=== PATIENT | male | born 1975 | race Caucasian/White ===

== ENCOUNTER 2020-08-20 23:53 | Day surgery (SDC) | payer SELFPAY ==
[~2020-08-20] VITALS: Ht 182.8 cm; Wt 149.0 kg
[2020-08-21] VITALS (13 sets, daily range): BP systolic 102–146; BP diastolic 66–85
[2020-08-21] MEDS ORDERED: fentaNYL INJECTION 100 MCG/2 ML AMP IVP STA ×2 (00:09→02:25)
[2020-08-21 00:27] LABS: BASOPHILS % (AUTO) 0 % (0-10); EOSINOPHILS % (AUTO) 0 % (0-10); HEMATOCRIT 40 % (40-54); HEMOGLOBIN 13.8 g/dL (13.3-17.7); LYMPHOCYTES # (AUTO) 0.9 10^3/uL (1.0-4.0); LYMPHOCYTES % (AUTO) 7 % (12-44); MEAN CORPUSCULAR HEMOGLOBIN 29 pg (25-34); MEAN CORPUSCULAR HGB CONC 34 g/dL (32-36); MEAN CORPUSCULAR VOLUME 83 fL (80-99); MEAN PLATELET VOLUME 10.9 fL (9.0-12.2); MONOCYTES # (AUTO) 0.5 10^3/uL (0.0-1.0); MONOCYTES % (AUTO) 4 % (0-12); NEUTROPHILS # (AUTO) 11.6 10^3/uL (1.8-7.8); NEUTROPHILS % (AUTO) 88 % (42-75); PLATELET COUNT 253 10^3/uL (130-400); WHITE BLOOD COUNT 13.1 10^3/uL (4.3-11.0)
[2020-08-21 00:31] LABS: ALBUMIN 4.1 GM/DL (3.2-4.5); CHLORIDE 105 MMOL/L (98-107); POTASSIUM 3.9 MMOL/L (3.6-5.0); SODIUM 140 MMOL/L (135-145)
[2020-08-21 00:32] LABS: CALCIUM 8.6 MG/DL (8.5-10.1)
[2020-08-21 00:33] LABS: GLUCOSE 119 MG/DL (70-105); TOTAL PROTEIN 7.3 GM/DL (6.4-8.2)
[2020-08-21 00:34] LABS: CARBON DIOXIDE 22 MMOL/L (21-32)
[2020-08-21 00:35] LABS: BILIRUBIN,TOTAL 0.7 MG/DL (0.1-1.0)
[2020-08-21 00:37] LABS: ALKALINE PHOSPHATASE 58 U/L (40-136); CREATININE SERUM 0.79 MG/DL (0.60-1.30); GFR ESTIMATED > 60
[2020-08-21 00:38] LABS: BUN/CREATININE RATIO 18
[2020-08-21 00:40] LABS: ALANINE AMINOTRANSFERASE 44 U/L (0-55)
--- NOTE | 2020-08-21 00:43 | ED Abdominal Pain ---
General Chief Complaint: Abdominal/GI Problems Stated Complaint: ABD PAIN Nursing Triage Note: Patient comes in via EMS c/o R LQ pain since noon with nausea/vomiting. Sepsis Screen: No Definite Risk Source of Information: Patient Exam Limitations: No Limitations History of Present Illness Date Seen by Provider: Aug 21, 2020 Time Seen by Provider: 00:02 Initial Comments Here with complaint of right lower quadrant pain since about noon today that has worsened. It is associated with nausea and chills. Denies diarrhea. Last ate about 1 PM. Has not had pain like this before. Does admit to methamphetamine abuse with last use 2 days ago. Previously 1 month prior to that. Still has his appendix. Timing/Duration: 12 Hours, Getting Worse Severity/Quality: Moderate Location: RLQ Radiation: No Radiation Activities at Onset: None Modifying Factors: Worsens With Movement; Improves With Resting Associated Symptoms: No Back Pain, No Chest Pain, No Fever/Chills, No Shortness of Air, No Weakness Allergies and Home Medications Allergies Coded Allergies: No Known Drug Allergies (Unverified , 08/21/20) Patient Home Medication List Home Medication List Reviewed: Yes Review of Systems Review of Systems Constitutional: see HPI, chills; No fever EENTM: No Symptoms Reported; No Nose Congestion, No Throat Pain Respiratory: Denies Cough, Denies Shortness of Air Cardiovascular: Denies Chest Pain, Denies Edema Gastrointestinal: See HPI, Abdominal Pain; Denies Diarrhea Genitourinary: No Symptoms Reported Musculoskeletal: no symptoms reported Skin: no symptoms reported All Other Systems Reviewed Negative Unless Noted: Yes Past Pbjjltr-Aaeccc-Svdbel Hx Past Med/Social Hx: Reviewed Nursing Past Med/Soc Hx Patient Social History Alcohol Use: Occasionally Uses Drug of Choice: Methamphetamine Smoking Status: Current Everyday Smoker Recent Infectious Disease Expo: No Past Medical History Surgeries: No Respiratory: No Cardiac: No Neurological: No Gastrointestinal: No Musculoskeletal: No Endocrine: No Family Medical History Reviewed Nursing Family Hx No Pertinent Family Hx Physical Exam Vital Signs Vital Signs - First Documented 08/20/20 23:55 Temp 36.3 Pulse 94 Resp 18 B/P (MAP) 166/96 (119) Pulse Ox 95 O2 Delivery Room Air Capillary Refill : Less Than 3 Seconds Height/Weight/BMI Height: '" Weight: lbs. oz. kg; 37.00 BMI Method: General Appearance: WD/WN, no apparent distress HEENT: PERRL/EOMI, pharynx normal Neck: full range of motion, supple Respiratory: lungs clear, normal breath sounds Cardiovascular: regular rate, rhythm, no murmur Gastrointestinal: No guarding, No rebound; tenderness (Right lower quadrant) Extremities: non-tender, normal inspection Back: normal inspection, no CVA tenderness, no vertebral tenderness Neurologic/Psychiatric: alert, normal mood/affect Skin: normal color, warm/dry Progress/Results/Core Measures Results/Orders Lab Results Laboratory Tests Test 08/21/20 00:05 08/21/20 01:15 Range/Units White Blood Count 13.1 H 4.3-11.0 10^3/uL Red Blood Count 4.83 4.30-5.52 10^6/uL Hemoglobin 13.8 13.3-17.7 g/dL Hematocrit 40 40-54 % Mean Corpuscular Volume 83 80-99 fL Mean Corpuscular Hemoglobin 29 25-34 pg Mean Corpuscular Hemoglobin Concent 34 32-36 g/dL Red Cell Distribution Width 13.0 10.0-14.5 % Platelet Count 253 130-400 10^3/uL Mean Platelet Volume 10.9 9.0-12.2 fL Immature Granulocyte % (Auto) 0 % Neutrophils (%) (Auto) 88 H 42-75 % Lymphocytes (%) (Auto) 7 L 12-44 % Monocytes (%) (Auto) 4 0-12 % Eosinophils (%) (Auto) 0 0-10 % Basophils (%) (Auto) 0 0-10 % Neutrophils # (Auto) 11.6 H 1.8-7.8 10^3/uL Lymphocytes # (Auto) 0.9 L 1.0-4.0 10^3/uL Monocytes # (Auto) 0.5 0.0-1.0 10^3/uL Eosinophils # (Auto) 0.0 0.0-0.3 10^3/uL Basophils # (Auto) 0.0 0.0-0.1 10^3/uL Immature Granulocyte # (Auto) 0.1 0.0-0.1 10^3/uL Neutrophils % (Manual) 87 % Lymphocytes % (Manual) 9 % Monocytes % (Manual) 4 % Eosinophils % (Manual) 0 % Basophils % (Manual) 0 % Band Neutrophils 0 % Blood Morphology Comment NORMAL Sodium Level 140 135-145 MMOL/L Potassium Level 3.9 3.6-5.0 MMOL/L Chloride Level 105 98-107 MMOL/L Carbon Dioxide Level 22 21-32 MMOL/L Anion Gap 13 5-14 MMOL/L Blood Urea Nitrogen 14 7-18 MG/DL Creatinine 0.79 0.60-1.30 MG/DL Estimat Glomerular Filtration Rate > 60 BUN/Creatinine Ratio 18 Glucose Level 119 H 70-105 MG/DL Calcium Level 8.6 8.5-10.1 MG/DL Corrected Calcium 8.5 8.5-10.1 MG/DL Total Bilirubin 0.7 0.1-1.0 MG/DL Aspartate Amino Transf (AST/SGOT) 31 5-34 U/L Alanine Aminotransferase (ALT/SGPT) 44 0-55 U/L Alkaline Phosphatase 58 40-136 U/L C-Reactive Protein High Sensitivity 1.19 H 0.00-0.50 MG/DL Total Protein 7.3 6.4-8.2 GM/DL Albumin 4.1 3.2-4.5 GM/DL Urine Color YELLOW Urine Clarity CLEAR Urine pH 5.5 5-9 Urine Specific [place] >=1.030 1.016-1.022 Urine Protein 1+ H NEGATIVE Urine Glucose (UA) NEGATIVE NEGATIVE Urine Ketones 1+ H NEGATIVE Urine Nitrite NEGATIVE NEGATIVE Urine Bilirubin NEGATIVE NEGATIVE Urine Urobilinogen 0.2 < = 1.0 MG/DL Urine Leukocyte Esterase NEGATIVE NEGATIVE Urine RBC (Auto) NEGATIVE NEGATIVE Urine RBC NONE /HPF Urine WBC NONE /HPF Urine Squamous Epithelial Cells NONE /HPF Urine Crystals NONE /LPF Urine Amorphous Sediment FEW FLAVIA URATES H /LPF Urine Bacteria NEGATIVE /HPF Urine Casts NONE /LPF Urine Mucus NEGATIVE /LPF Urine Culture Indicated NO My Orders Orders - CORNELIO MARQUEZ MD Cbc With Automated Diff (08/21/20 00:09) Comprehensive Metabolic Panel (08/21/20 00:09) Hs C Reactive Protein (08/21/20 00:09) Ua Culture If Indicated (08/21/20 00:09) Fentanyl Injection (Sublimaze Injection (08/21/20 00:09) Ct Abd/Pelv W (Appendicitis) (08/21/20 00:09) Manual Differential (08/21/20 00:05) Iohexol Injection (Omnipaque 350 Mg/Ml 1 (08/21/20 01:15) Received Contrast (Hold Metformin- Contr (08/21/20 01:15) Sodium Chloride Flush (Catheter Flush Sy (08/21/20 01:15) Ns (Ivpb) (Sodium Chloride 0.9% Ivpb Bag (08/21/20 01:15) Piperacillin Sodium/Tazobactam (Zosyn Vi (08/21/20 01:45) Medications Given in ED Current Medications Medications Dose Ordered Sig/Bella Route Start Time Stop Time Status Last Admin Dose Admin Iohexol 100 ml ONCE ONCE IV 08/21/20 01:15 08/21/20 01:16 DC 08/21/20 01:18 100 ML Sodium Chloride 10 ml NEEDED PRN IV 08/21/20 01:15 08/21/20 01:18 10 ML Sodium Chloride 100 ml ONCE ONCE IV 08/21/20 01:15 08/21/20 01:16 DC 08/21/20 01:18 80 ML Vital Signs/I&O 08/20/20 23:55 Temp 36.3 Pulse 94 Resp 18 B/P (MAP) 166/96 (119) Pulse Ox 95 O2 Delivery Room Air 08/21/20 00:00 Intake Total 300 ml Balance 300 ml Blood Pressure Mean: 119 Progress Progress Note : Progress Note Seen and evaluated. IV, labs, CT abdomen pelvis with contrast for appendicitis protocol and fentanyl 50 mcg IV ordered. Monitor patient. 0132: Results received for CT scan showing acute appendicitis. I did discuss the case with Dr. Flores. He is requesting Zosyn 4.5 g IV now and admit and he will take to the OR in the morning. This was discussed with the patient who agrees with plan. Orders written. Patient to remain n.p.o. Diagnostic Imaging Diagonstic Imaging: CT Plain Films/CT/US/NM/MRI: abdomen, pelvis Comments Findings suggestive of acute appendicitis Reviewed: Reviewed [place] Study, Reviewed by Me, Discussed w/Radiologist Departure Communication (Admissions) Time/Spoke to Admitting Phy: 01:32 Impression Primary Impression: Appendicitis Qualified Codes: K35.30 - Acute appendicitis with localized peritonitis, without perforation or gangrene Disposition: ADMITTED INPATIENT Condition: Stable Admissions Decision to Admit Reason: Admit from ER (General) Decision to Admit/Date: Aug 21, 2020 Time/Decision to Admit Time: 01:32 Departure-Patient Inst. Referrals: UNKNOWN (PCP) Primary Care Physician CORNELIO MARQUEZ MD Aug 21, 2020 00:43
[2020-08-21 01:09] LABS: BAND NEUTROPHILS 0 %; BASOPHILS % (MANUAL) 0 %; EOSINOPHILS % (MANUAL) 0 %; LYMPHOCYTES % (MANUAL) 9 %; MONOCYTES % (MANUAL) 4 %; NEUTROPHILS % (MANUAL) 87 %; RBC MORPH NORMAL
[2020-08-21] MEDS ORDERED: NS 100 ML (IVPB) BAG IV ONE (01:15)
[2020-08-21] MEDS ORDERED: HOLD METFORMIN - RECEIVED CONTRAST 20 ML VIAL IV SCH (01:15)
[2020-08-21] MEDS ORDERED: IOHEXOL 350 MG/ML 100 ML (OMNIPAQUE 350) VIAL IV ONE (01:15)
[2020-08-21] MEDS ORDERED: CATHETER FLUSH 10 ML SYR IV PRN (01:15)
[2020-08-21 01:21] LABS: BILIRUBIN,URINE NEGATIVE (NEGATIVE); CLARITY,URINE CLEAR; COLOR,URINE YELLOW; GLUCOSE, URINE (UA) NEGATIVE (NEGATIVE); KETONES,URINE 1+ (NEGATIVE); LEUKOCYTE ESTERASE ,URINE NEGATIVE (NEGATIVE); NITRITE,URINE NEGATIVE (NEGATIVE); PH,URINE 5.5 (5-9); PROTEIN,URINE 1+ (NEGATIVE)
[2020-08-21 01:29] LABS: BACTERIA,URINE NEGATIVE /HPF
[2020-08-21 01:30] LABS: AMORPHOUS SEDIMENT,UR FEW AMOR URATES /LPF
[2020-08-21] MEDS ORDERED: PIPERACILLIN SODIUM/TAZOBACTAM 4.5 GM in NS (IVPB) 100 ML IV ONE (01:45)
[2020-08-21] MEDS ORDERED: KETOROLAC 30 MG/ML VIAL IVP STA (02:25)
[2020-08-21] MEDS ORDERED: LACTATED RINGERS 1,000 ML IV SCH (04:00)
[2020-08-21] MEDS ORDERED: ONDANSETRON 4 MG/2 ML (SDV) Z0FRAN IVP PRN ×2 (04:00→09:00)
--- NOTE | 2020-08-21 06:29 | History & Physical-Surgical ---
ADAM DICKINSON MED STUDENT 08/21/20 0629: History of Present Illness History of Present Illness Reason for visit/HPI CC: RLQ abdominal pain HPI: Patient presented to the ED around 0040 this AM with complaints of RLQ abdominal pain, nausea, vomiting, and chills that started yesterday around noon. He states that he's vomited a total of 4-5 times without evidence of blood. He has had no associated diarrhea. He states that movement or coughing worsens the pain. He states that lying still improves the pain. He rates that pain at a 7/10 currently and reports that the pain is now just a constant throbbing pain, but initially was intermittent and stabbing in quality. He states that the pain does not radiate anywhere. Patient winces in pain when palpating RLQ. He does admit to meth use 3 days ago. States he hasn't eaten or drank since yesterday around 1200 or so. Date of Admission Aug 21, 2020 at 01:53 Date Seen by a Provider: Aug 21, 2020 Time Seen by a Provider: 06:15 I consulted on this patient on 08/21/20 06:23 Attending Physician García Flores DO Admitting Physician No,Local Physician Consult Allergies and Home Medications Allergies Coded Allergies: No Known Drug Allergies (Unverified , 08/21/20) Past Skftlcv-Yosjfl-Zhzxjr Hx Patient Social History Number of Drinks Today: 0 Drug of Choice: Methamphetamine Smoking Status: Current Everyday Smoker (PPD x 30 years) Type Used: Cigarettes 2nd Hand Smoke Exposure: Yes Recent Hopitalizations: No Physical Abuse Screen: No Alcohol Use?: Yes (drinks one six pack of beer per week on average) Substance type: Caffeine, Methamphetamine Have you traveled recently?: No Seasonal Allergies Seasonal Allergies: No Surgeries History of Surgeries: No Respiratory History of Respiratory Disorde: No Cardiovascular History of Cardiac Disorders: No Neurological History of Neurological Disord: No Genitourinary History of Genitourinary Disor: No Gastrointestinal History of Gastrointestinal Di: No Musculoskeletal History of Musculoskeletal Dis: Yes Musculoskeletal Disorders: Chronic Back Pain Endocrine History of Endocrine Disorders: No HEENT History of HEENT Disorders: Yes HEENT Disorders: Cataract (states he has cataracts, unsure of which eye) Loss of Vision: Denies Hearing Impairment: Denies Cancer History of Cancer: No Psychosocial History of Psychiatric Problem: No Integumentary History of Skin or Integumenta: No Blood Transfusions History of Blood Disorders: No Family Medical History Significant Family History: No Pertinent Family Hx Review of Systems Constitutional: see HPI, chills; No diaphoresis, No dizziness, No fever EENTM: dental problems (tooth loss/decay); No hearing loss, No blurred vision, No double vision Respiratory: no symptoms reported; No cough, No dyspnea on exertion, No short of breath, No stridor, No wheezing Cardiovascular: no symptoms reported; No chest pain, No edema Gastrointestinal: RLQ, see HPI, abdominal pain (RLQ); No diarrhea; nausea, vomiting Genitourinary: no symptoms reported; No dysuria, No frequency Musculoskeletal: back pain, joint pain (Chronic R knee pain) Skin: lesions (multiple scattered scabs/excoriations on thorax and Bilat lower extrem. Bilat heels fissured and cracking. ) Psychiatric/Neurological: No Symptoms Reported; Denies Anxiety, Denies Depressed, Denies Headache, Denies Numbness All Other Systems Reviewed Negative Unless Noted: Yes Physical Exam Vital Signs Vital Signs - First Documented 08/20/20 23:55 Temp 36.3 Pulse 94 Resp 18 B/P (MAP) 166/96 (119) Pulse Ox 95 O2 Delivery Room Air Capillary Refill : Less Than 3 Seconds Height, Weight, BMI Height: '" Weight: lbs. oz. kg; 44.58 BMI Method: General Appearance: No Apparent Distress, WD/WN Eyes: Bilateral Eye Normal Inspection, Bilateral Eye PERRL, Bilateral Eye EOMI HEENT: PERRL/EOMI, Pharynx Normal Neck: Full Range of Motion, Non Tender Respiratory: Chest Non Tender, No Accessory Muscle Use, No Respiratory Distress, Decreased Breath Sounds; No Rhonci, No Stridor, No Wheezing Cardiovascular: Regular Rate, Rhythm, No Edema, No Murmur, Normal Peripheral Pulses Gastrointestinal: Soft, Abnormal Bowel Sounds (hypoactive bowel sounds); No Distended, No Guarding; Tenderness Rectal: Deferred Back: Normal Inspection, No Vertebral Tenderness Extremity: Normal Capillary Refill, Non Tender, No Calf Tenderness Neurologic/Psychiatric: Alert, Oriented x3, No Motor/Sensory Deficits, 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 Bilateral heels cracked/fissured. ) Lymphatic: No Adenopathy Data Review Labs Laboratory Tests 08/21/20 00:05: White Blood Count 13.1H, Red Blood Count 4.83, Hemoglobin 13.8, Hematocrit 40, Mean Corpuscular Volume 83, Mean Corpuscular Hemoglobin 29, Mean Corpuscular Hemoglobin Concent 34, Red Cell Distribution Width 13.0, Platelet Count 253, Mean Platelet Volume 10.9, Immature Granulocyte % (Auto) 0, Neutrophils (%) (Auto) 88H, Lymphocytes (%) (Auto) 7L, Monocytes (%) (Auto) 4, Eosinophils (%) (Auto) 0, Basophils (%) (Auto) 0, Neutrophils # (Auto) 11.6H, Lymphocytes # (Auto) 0.9L, Monocytes # (Auto) 0.5, Eosinophils # (Auto) 0.0, Basophils # (Auto) 0.0, Immature Granulocyte # (Auto) 0.1, Neutrophils % (Manual) 87, Lymphocytes % (Manual) 9, Monocytes % (Manual) 4, Eosinophils % (Manual) 0, Basophils % (Manual) 0, Band Neutrophils 0, Blood Morphology Comment NORMAL, Sodium Level 140, Potassium Level 3.9, Chloride Level 105, Carbon Dioxide Level 22, Anion Gap 13, Blood Urea Nitrogen 14, Creatinine 0.79, Estimat Glomerular Filtration Rate > 60, BUN/Creatinine Ratio 18, Glucose Level 119H, Calcium Level 8.6, Corrected Calcium 8.5, Total Bilirubin 0.7, Aspartate Amino Transf (AST/SGOT) 31, Alanine Aminotransferase (ALT/SGPT) 44, Alkaline Phosphatase 58, C-Reactive Protein High Sensitivity 1.19H, Total Protein 7.3, Albumin 4.1 08/21/20 01:15: Urine Color YELLOW, Urine Clarity CLEAR, Urine pH 5.5, Urine Specific [place] >=1.030, Urine Protein 1+H, Urine Glucose (UA) NEGATIVE, Urine Ketones 1+H, Urine Nitrite NEGATIVE, Urine Bilirubin NEGATIVE, Urine Urobilinogen 0.2, Urine Leukocyte Esterase NEGATIVE, Urine RBC (Auto) NEGATIVE, Urine RBC NONE, Urine WBC NONE, Urine Squamous Epithelial Cells NONE, Urine Crystals NONE, Urine Amorphous Sediment FEW FLAVIA URATESH, Urine Bacteria NEGATIVE, Urine Casts NONE, Urine Mucus NEGATIVE, Urine Culture Indicated NO Assessment/Plan Assessment/Plan Admission Diagonsis Acute appendicitis Nausea, vomiting, chills Methamphetamine use disorder Tobacco abuse Admission Status: Inpatient Order (span 2 midnights) Reason for Inpatient Admission: Patient admitted for planned laparoscopic appendectomy this morning Assessment/Plan Acute appendicitis Nausea, vomiting, chills Methamphetamine use disorder Tobacco Abuse Chronic back pain To OR this am for laparoscopic appendectomy NPO Continue IV antibiotics Zofran PRN nausea IVP fentanyl for pain control Vital signs per protocol Continue LR @ 125ml/hr GARCÍA FLORES DO 08/21/20 0707: History of Present Illness History of Present Illness Reason for visit/HPI CC: RLQ abd pain rlq abd pain started yesterday about noon. from umbilicus to right lower quadrant. constant sharp stabbing/throbbing pain now more dull. Movement makes worse. Nothing really aking better. 7/10 pain. + n/v chills and some diarrhea. + meth use. Ct scan reviewed and consistent with acute appendicitis and appendicolith. Allergies and Home Medications Allergies Coded Allergies: No Known Drug Allergies (Unverified , 08/21/20) Patient Home Medication List Home Medication List Reviewed: Yes Past Jqaullu-Movtny-Yfkexi Hx Reviewed Nursing Assessment Reviewed/Agree w Nursing PMH: Yes Family Medical History Significant Family History: No Pertinent Family Hx Review of Systems Constitutional: chills; No diaphoresis, No dizziness, No fever EENTM: dental problems (tooth loss/decay); No hearing loss, No blurred vision, No double vision Respiratory: No cough, No dyspnea on exertion, No short of breath, No stridor, No wheezing Cardiovascular: No chest pain, No edema Gastrointestinal: RLQ, abdominal pain (RLQ); No diarrhea; nausea, vomiting Genitourinary: No decreased output, No discharge, No dysuria, No frequency Musculoskeletal: back pain, joint pain (Chronic R knee pain) Skin: lesions (multiple scattered scabs/excoriations on thorax and Bilat lower extrem. Bilat heels fissured and cracking. ) Psychiatric/Neurological: Denies Anxiety, Denies Depressed Physical Exam General Appearance: WD/WN, Anxious HEENT: PERRL/EOMI, Other (poor dentation) Neck: Full Range of Motion, Non Tender Respiratory: Chest Non Tender, No Accessory Muscle Use, No Respiratory Distress Cardiovascular: Regular Rate, Rhythm, No JVD Gastrointestinal: Soft; No Distended, No Guarding; Tenderness (right lower quadrant) Rectal: Deferred Back: Normal Inspection, No Vertebral Tenderness Extremity: Normal Capillary Refill, Non Tender, No Calf Tenderness Neurologic/Psychiatric: Alert, Oriented x3, No Motor/Sensory Deficits Skin: Normal Color, Warm/Dry, Other (scattered scabs/excoriations thorax and legs bilateally. Bilateral heels cracked/fissured. ) Lymphatic: No Adenopathy Assessment/Plan Assessment/Plan Admission Diagonsis RLQ abdominal pain Acute appendicitis with appendicolith Nausea, vomiting, chills Methamphetamine use Tobacco abuse Admission Status: Observation Assessment/Plan RLQ abdominal pain Acute appendicitis with appendicolith Nausea, vomiting, chills Methamphetamine use Tobacco abuse IV abx NPO IV fluids discussed risks and benefits of laparoscopic appendectomy all other indicated procedures and he understands and wishes to proceed- to or Supervisory-Addendum Brief Verification & Attestation Participated in pt care: history, MDM, physical Personally performed: exam, history, MDM, supervision of care Care discussed with: Medical Student Procedures: n/a Results interpretation: Verified all documentation Verification and Attestation of Medical Student E/M Service A medical student performed and documented this service in my presence. I reviewed and verified all information documented by the medical student and made modifications to such information, when appropriate. I personally performed the physical exam and medical decision making. García Flores, Aug 21, 2020,07:00 ADAM DICKINSON MED STUDENT Aug 21, 2020 06:29 GARCÍA FLORES DO Aug 21, 2020 07:07
[2020-08-21] MEDS ORDERED: SUCCINYLCHOLINE INJ 100 MG/5 ML SYR/VIAL ONE (06:41)
[2020-08-21] MEDS ORDERED: ONDANSETRON 4 MG/2 ML (SDV) Z0FRAN ONE (06:41)
[2020-08-21] MEDS ORDERED: ROCURONIUM 10 MG/ML 5 ML SYRINGE IV ONE ×2 (06:41→07:48)
[2020-08-21] MEDS ORDERED: LIDOCAINE PF 2% 5 ML (XYLOCAINE) VIAL ONE (06:41)
[2020-08-21] MEDS ORDERED: proPOfol 200 MG/20 ML (DIPRIVAN) VIAL IV ONE (06:41)
[2020-08-21] MEDS ORDERED: SEVOFLURANE (ULTANE) 15 ML INHAL SOLN ONE (06:41)
[2020-08-21] MEDS ORDERED: MIDAZOLAM 2 MG/2 ML (VERSED) VIAL ONE (06:41)
[2020-08-21] MEDS ORDERED: NEOSTIGMINE 3 MG/3 ML VIAL ONE (06:41)
[2020-08-21] MEDS ORDERED: GLYCOPYRROLATE 0.2 MG/ML (ROBINUL) 2 ML VIAL ONE (06:41)
[2020-08-21] MEDS ORDERED: fentaNYL INJECTION 100 MCG/2 ML AMP ONE (06:41)
[2020-08-21] MEDS ORDERED: LIDOCAINE/EPI 1%-1:100,000 (XYLOCAINE) 50 ML ONE (06:50)
[2020-08-21] MEDS ORDERED: ceFAZolin 2 GM IV Premixed 50 ML IV ONE (07:00)
--- NOTE | 2020-08-21 07:17 | Diagnostic Imaging Report ---
CT ABD/PELV W (APPENDICITIS) TECHNIQUE: Multiple contiguous axial images were obtained through the abdomen and pelvis after administration of intravenous contrast. All CT scans use one or more of the following dose optimizing techniques: automated exposure control, MA and/or KvP adjustment based on a patient size and exam type, or iterative reconstruction. INDICATION: Right lower quadrant pain. COMPARISON: None available. FINDINGS: Lower chest: The lung bases are clear. No pericardial or pleural effusion. Peritoneum: No free intraperitoneal air or fluid. Liver and biliary system: Mild hypoattenuation liver raises possibility hepatic steatosis. No focal hepatic lesion. The main portal vein is patent. The gallbladder is normal. No biliary duct dilation. Spleen and Pancreas: Spleen is enlarged measuring 17 cm. A large splenule is present at the inferior and medial margin of the spleen. Diffuse fatty infiltration is present throughout the pancreas. No features of acute pancreatitis. Adrenals: Normal. tract: The kidneys enhance normally without suspicious mass or obstruction. Urinary bladder is distended without wall thickening. Prostate is not enlarged. GI tract: Stomach is partially filled with fluid and there is no wall thickening. No bowel obstruction. No pericolonic inflammatory changes. The appendix has some hyperdensities within its lumen which may represent appendicoliths or inspissated material. The appendix is dilated measuring up to 15 mm and has surrounding stranding indicative of acute appendicitis. No abscess. Vasculature and Lymph nodes: Normal caliber aorta. No abdominal or pelvic lymphadenopathy. Musculoskeletal: No concerning osseous lesion. IMPRESSION: 1. Acute appendicitis without abscess or janell perforation. 2. Splenomegaly. 3. Findings are in agreement with the preliminary report. Dictated by: Dictated on workstation # [id number]
[2020-08-21] MEDS: LACTATED RINGERS 1,000 ML IV PRN ×2 (07:20→07:56)
[2020-08-21] MEDS ORDERED: ceFAZolin INJECTION 2,000 MG ONE (07:33)
[2020-08-21] MEDS ORDERED: PIPERACILLIN/TAZO 4.5 GM/NS 100 ML IV SCH ×2 (08:00)
[2020-08-21] MEDS ORDERED: HYDROmorphone 2 MG/ML VIAL (DILAUDID) ONE (08:22)
--- NOTE | 2020-08-21 08:33 | Progress Note-Post Operative ---
Post-Operative Progess Note Surgeon (s)/Director Data Processing (s) Surgeon KHOA BROWN DO Director Data Processing: na Pre-Operative Diagnosis acute appendicitis Post-Operative Diagnosis acute appendicitis Procedure & Operative Findings Date of Procedure 08/21/20 Procedure Performed/Findings PROCEDURE: Laparoscopic appendectomy. COMPLICATIONS: None. INDICATIONS: The patient is a 45 year old male who has been having right lower quadrant abdominal pain. Patient's exam consistent with appendicitis. I discussed risk and benefits of laparoscopic appendectomy and all indicated procedures with the possibility being a normal appendix. The patient understands the risks and benefits and wishes to proceed. Consent was signed on the chart. DESCRIPTION OF PROCEDURE: The patient was taken to the operating suite, prepped and draped in a sterile fashion. Timeout was performed. Local anesthetic was infiltrated just above the umbilicus and 11-blade scalpel was used to make a skin incision. Cautery was used to dissect down to the fascia and scored. Kochers were used to grasp and elevate it and the abdomen was then entered. A 0 Vicryl was placed in a [id number] fashion for closure at the end of the case. The balloon trocar was inserted into the abdomen and pneumoperitoneum was achieved. Under direct visualization of the laparoscope, a 5 mm trocar was placed in the suprapubic region and a 5 mm trocar was placed in the left lower quadrant. Appendix was located, inflamed dilated appendix. The mesoappendix was then divided next to the appendix. Once the base of the appendix was dissected around, an Endo-TOYA 2.5 stapler was then fired across the base of the appendix. It was then placed in an Endobag and removed through the 12 mm trocar site. The abdomen was then irrigated and suctioned. No other pathology noted. The abdomen was then desufflated and the trocars were removed. The 0 Vicryl placed at the beginning of the case was then tied closing the 12 mm fascial defect. The skin was then closed using 4-0 Monocryl in a subcuticular fashion. The abdomen was then washed and dried and Skin Affix was placed over the incisions. The patient tolerated the procedure well without any complications and was taken to the recovery room in stable condition. Anesthesia Type general Estimated Blood Loss Estimated blood loss (mL): minimal Specimens/Packing Specimens Removed KHOA Johnson DO Aug 21, 2020 08:33
[2020-08-21] MEDS ORDERED: morphine INJ 10 MG/ML 1ML (SYR OR VIAL) IVP ONE (09:00)
[2020-08-21] MEDS ORDERED: HYDROmorphone 2 MG/ML VIAL (DILAUDID) IV ONE (09:00)
[2020-08-21] MEDS: LACTATED RINGERS 1,000 ML IV SCH ×3 (09:13→19:51)
--- NOTE | 2020-08-21 10:46 | Anesthesia-General Post-Op ---
General Patient Condition Mental Status/LOC: Same as Preop Cardiovascular: Satisfactory Nausea/Vomiting: Absent Respiratory: Satisfactory Pain: Controlled Complications: Absent Post Op Complications Complications None Follow Up Care/Instructions Patient Instructions None needed. Anesthesia/Patient Condition Patient Condition Patient is doing well, no complaints, stable vital signs, no apparent adverse anesthesia problems. LAKEISHA HOLLY DO Aug 21, 2020 10:46
[2020-08-21] MEDS: PIPERACILLIN/TAZO 4.5 GM/NS 100 ML IV SCH ×4 (11:02→19:03)
[2020-08-21] MEDS: fentaNYL INJECTION 100 MCG/2 ML AMP IVP PRN ×3 (14:49→19:54)
[2020-08-21] MEDS ORDERED: IBUP-2473 PO (15:53)
[2020-08-21] MEDS ORDERED: NAPR220C11 PO (15:53)
[2020-08-21] MEDS: HYDROcodone/APAP 5 MG/325 MG (LORTAB) TAB PO PRN (22:35)
[2020-08-22 00:12] VITALS: BP 118/77
[2020-08-22 04:07] VITALS: BP 137/93
[2020-08-22] MEDS: LACTATED RINGERS 1,000 ML IV SCH (04:08)
[2020-08-22 08:00] VITALS: BP 148/84
[2020-08-22] MEDS ORDERED: ACHD5005 PO (08:08)
[2020-08-22] MEDS ORDERED: DOCU-143 PO (08:08)
--- NOTE | 2020-08-22 08:09 | Discharge Inst-Simple/Standard ---
Discharge Inst-Standard Discharge Medications New, Converted or Re-Newed RX: RX on Chart Patient Instructions/Follow Up Plan of Care/Instructions/FU: 2 weeks Flores Activity as Tolerated: No Discharge Diet: Regular Diet Other Inst to Patient Follow up Appt: Make appointment for 2 week. Instructions: No lifting greater than 10 pounds. No strenuous activity. May shower, no tub bath or soaking. Use incentive spirometer at home as directed. No Smoking Skin/Wound Care: You have special glue over your incision that will fall off on it's own. Symptoms to Report: Appetite Changes, Extremity Discoloration, Numbness/Tingling, Swelling Increased, Bleeding Excessive, Eyesight Changes, Pain Increased, Urine Color Change, Constipation(Persistent), Fever over 101 degree F, Pain/Pressure in chest, Urinating Difficulty, Cough Up/Vomit Blood, Heart Beat Irreg/Pounding, Pain/Pressure in jaw, Vaginal Bleeding Increase, Cramps in feet or legs, Lightheadedness, Pain/Pressure in shoulder, Diarrhea(Persistent), Memory Changes Suddenly, Questions/Concerns, Weight gain consecutive days, Dizziness/Fainting, Nausea/Vomiting, Shortness of Breath, Weight gain over 2 pounds If questions or concerns contact your physician Or seek help at emergency department. KHOA FLORES DO Aug 22, 2020 08:09
[2020-08-22] MEDS: HYDROcodone/APAP 5 MG/325 MG (LORTAB) TAB PO PRN (08:36)
[2020-08-22 09:30] VITALS: BP 148/84
== END 2020-08-22 09:30 | disposition home or self-care (01) ==
LOC: ER 23:55 → CSD 23:56 → SDC 23:56 → CSD 08-21 01:53 → UNDOADMOB 08-21 01:53 → CSD 08-21 03:58 → 4TH 08-21 12:09 → SDC 08-22 09:30 → UNDODISOB 08-22 09:30
PROVIDERS: ATTEND Surgery
DX: K35.80 Unspecified acute appendicitis (principal); E66.01 Morbid (severe) obesity due to excess calories; Z79.899 Other long term (current) drug therapy; Z68.41 Body mass index [BMI] 40.0-44.9, adult; F17.210 Nicotine dependence, cigarettes, uncomplicated; Z20.822 Contact with and (suspected) exposure to COVID-19
CPT/HCPCS: 44970; 74177; 80053; 81000; 85007; 85027; 86141; 88304; 94760; 96365; 96375; 96376; 99284; U0002; 36415; 87635